=== PATIENT | female | born 1990 | race American Indian/Alaskan Native ===

== ENCOUNTER 2020-12-29 12:08 | Emergency (ER) | payer SELFPAY ==
--- NOTE | 2020-12-29 13:29 | Emergency Department Report ---
ED General Adult HPI - General Stated complaint: FEVER/CHILLS/VOMITTING/REDNESS LT FOOT Time Seen by Provider: 12/29/20 13:27 - History of Present Illness Initial comments: 30-year-old -[place] female patient presents with complaints of left foot swelling and redness x1 day. Patient states she has a history of lymphedema and normally has swelling in her extremities, however swelling has suddenly worsen with redness. She states she also has some chills and sweats last night, however she is unsure about her temperature. She rates her current pain is 8/10 in severity. She denies any injury or lesions to her foot or leg. No other past medical history per patient. She also denies any numbness/tingling or difficulty moving her limb. - Related Data Previous Rx's Medication Instructions Recorded Last Taken Type Ciprofloxacin HCl [Cipro] 500 mg PO Q12H #14 tab 10/30/14 Unknown Rx Promethazine [Phenergan] 25 mg PO Q6H PRN #10 tablet 10/30/14 Unknown Rx hydroCHLOROthiazide 25 mg PO QDAY #7 tablet 10/30/14 Unknown Rx [Hydrochlorothiazide] HYDROcodone/APAP 5-325 [[place] 1 each PO Q6HR PRN #14 tablet 06/11/15 Unknown Rx 5/325] Ibuprofen [Motrin] 800 mg PO Q8HR PRN #60 tablet 06/11/15 Unknown Rx Clindamycin [Clindamycin CAP] 300 mg PO Q6H 10 Days #40 capsule 12/29/20 Unknown Rx Allergies Allergy/AdvReac Type Severity Reaction Status Date / Time No Known Allergies Allergy Unverified 01/05/14 15:20 ED Review of Systems ROS: Stated complaint: FEVER/CHILLS/VOMITTING/REDNESS LT FOOT Other details as noted in HPI Constitutional: denies: chills, fever, malaise Respiratory: denies: cough, shortness of breath Cardiovascular: denies: chest pain Musculoskeletal: joint swelling Skin: change in color Neurological: denies: numbness, paresthesias ED Past Medical Hx - Past Medical History Additional medical history: Lymphedema of the lower extremities - Social History Smoking Status: Current Every Day Smoker Substance Use Type: Alcohol - Medications Home Medications: Home Medications Medication Instructions Recorded Confirmed Last Taken Type Ciprofloxacin HCl [Cipro] 500 mg PO Q12H #14 tab 10/30/14 Unknown Rx Promethazine [Phenergan] 25 mg PO Q6H PRN #10 tablet 10/30/14 Unknown Rx hydroCHLOROthiazide 25 mg PO QDAY #7 tablet 10/30/14 Unknown Rx [Hydrochlorothiazide] HYDROcodone/APAP 5-325 [[place] 1 each PO Q6HR PRN #14 tablet 06/11/15 Unknown Rx 5/325] Ibuprofen [Motrin] 800 mg PO Q8HR PRN #60 tablet 06/11/15 Unknown Rx Clindamycin [Clindamycin CAP] 300 mg PO Q6H 10 Days #40 capsule 12/29/20 Unknown Rx ED Physical Exam - General General appearance: alert, in no apparent distress, obese - Head Head exam: Present: atraumatic, normocephalic - Eye Eye exam: Present: normal appearance - Respiratory Respiratory exam: Absent: respiratory distress - Cardiovascular Cardiovascular Exam: Present: regular rate - Extremities Exam Extremities exam: Present: other (Lymphedema noted bilaterally to feet, worse in left foot with cellulitic changes; normal pedal pulses noted; no tenderness to palpation is noted; patient has normal range of motion of the foot and ankle) - Neurological Exam Neurological exam: Present: alert, oriented X3, normal gait - Psychiatric Psychiatric exam: Present: normal affect, normal mood - Skin Skin exam: Present: warm, dry, intact, erythema (Left foot and lower left leg) ED Course Vital Signs 12/29/20 13:22 Temperature 99 F Pulse Rate 89 Respiratory 18 Rate Blood Pressure 192/95 O2 Sat by Pulse 97 Oximetry ED Medical Decision Making - Lab Data Result diagrams: 12/29/20 13:44 12/29/20 13:44 - Radiology Data Radiology results: report reviewed LEFT FOOT 3 VIEW(S) INDICATION / CLINICAL INFORMATION: Pain/swelling cellulitis; history of lymphedema . Swelling has increased to 3 days. COMPARISON: None available. FINDINGS: BONES / JOINT(S): No acute fracture or subluxation. No significant arthritis. No osseous destruction. SOFT TISSUES: Diffuse soft tissue swelling especially on the dorsum of the foot where there are soft tissue calcifications which could be venous or lymphatic in origin. ADDITIONAL FINDINGS: None. - Medical Decision Making 30-year-old -[place] female patient presents with complaints of left foot swelling and redness x1 day. Patient states she has a history of lymphedema and normally has swelling in her extremities, however swelling has suddenly worsen with redness. She states she also has some chills and sweats last night, however she is unsure about her temperature. She rates her current pain is 8/10 in severity. She denies any injury or lesions to her foot or leg. No other past medical history per patient. She also denies any numbness/tingling or difficulty moving her limb. Cellulitis noted on exam. CBC shows minimally elevated white count at 12.1. No fever or tachycardia noted. X-rays negative for any acute bony abnormalities. Will treat for cellulitis with clindamycin. Recommend follow-up with primary care within 3 days. Patient to also discuss elevated blood pressure with PCP. Discussed signs and symptoms that should prompt immediate return to the emergency department in detail with patient who verbalized understanding. Critical care attestation.: If time is entered above; I have spent that time in minutes in the direct care of this critically ill patient, excluding procedure time. ED Disposition Clinical Impression: Elevated blood pressure reading, Cellulitis Disposition: TO HOME OR SELFCARE Is pt being admited?: No Condition: Stable Instructions: Cellulitis, Adult, Hypertension, Adult Prescriptions: Clindamycin [Clindamycin CAP] 300 mg PO Q6H 10 Days #40 capsule Referrals: PRIMARY CARE [Primary Care Provider] - 3-5 Days [facility] [Provider Group] - 01/01/21
--- NOTE | 2020-12-29 14:05 | XRay Report ---
LEFT FOOT 3 VIEW(S) INDICATION / CLINICAL INFORMATION: Pain/swelling cellulitis; history of lymphedema . Swelling has i ncreased to 3 days. COMPARISON: None available. FINDINGS: BONES / JOINT(S): No acute fracture or subluxation. No significant arthritis. No osseous destruction. SOFT TISSUES: Diffuse soft tissue swelling especially on the dorsum of the foot where there are soft tissue calcifications which could be venous or lymphatic in origin. ADDITIONAL FINDINGS: None. Signer Name: Kristin Cavanaugh MD Signed: 12/29/2020 2:01 PM Workstation Name: [id number]
[2020-12-29 14:36] LABS: Alanine Aminotransferase 13 units/L (7-56); Albumin 3.9 g/dL (3.9-5); Blood Urea Nitrogen 10 mg/dL (7-17); Calcium 9.4 mg/dL (8.4-10.2); Hemolysis Index 8
[2020-12-29 14:42] LABS: Basophils % (Auto) 0.1 % (0.0-1.8); Eosinophils % (Auto) 0.4 % (0.0-4.3); Hemoglobin 12.8 gm/dl (10.1-14.3); Lymphocytes # (Auto) 1.3 K/mm3 (1.2-5.4); Lymphocytes % (Auto) 11.1 % (13.4-35.0); Mean Corpuscular HGB Conc 33 % (30-34); Mean Corpuscular Volume 81 fl (79-97); Monocytes # (Auto) 0.5 K/mm3 (0.0-0.8); Monocytes % (Auto) 4.1 % (0.0-7.3); Platelet Count 233 K/mm3 (140-440); Red Blood Count 4.79 M/mm3 (3.65-5.03); Red Cell Distribution Width 15.3 % (13.2-15.2)
[2020-12-29 14:56] LABS: BUN/Creatinine Ratio 14
[2020-12-29 18:39] VITALS: BP 147/105
== END 2020-12-29 18:35 | disposition home or self-care (01) ==
LOC: ED 12:08
DX: L03.90 Cellulitis, unspecified (principal); R03.0 Elevated blood-pressure reading, without diagnosis of hypertension; F17.200 Nicotine dependence, unspecified, uncomplicated; Z79.899 Other long term (current) drug therapy
CPT/HCPCS: 36415; 80053; 84703; 85025

== ENCOUNTER 2021-06-29 20:18 | Emergency (ER) | payer OTHER ==
[2021-06-29 20:28] VITALS: BP 163/79
[2021-06-29] MEDS ORDERED: HYDROcodone/ACETAMINOPHEN 5-325 MG TAB PO STA (22:31)
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
== END 2021-06-30 00:50 | disposition home or self-care (01) ==
LOC: ED 20:18
DX: S16.1XXA Strain of muscle, fascia and tendon at neck level, initial encounter (principal); M79.18 Myalgia, other site; F17.200 Nicotine dependence, unspecified, uncomplicated; Z72.89 Other problems related to lifestyle; Z79.899 Other long term (current) drug therapy; V87.7XXA Person injured in collision between other specified motor vehicles (traffic), initial encounter; Y93.89 Activity, other specified; Y92.488 Other paved roadways as the place of occurrence of the external cause; Y99.8 Other external cause status
CPT/HCPCS: 99282